=== PATIENT | male | born 1970 | race Caucasian/White ===

== ENCOUNTER 2018-10-24 07:15 | Emergency (ER) | payer OTHER ==
[~2018-10-24] VITALS: Ht 175.3 cm; Wt 117.9 kg
[2018-10-24 07:42] VITALS: BP_SYST 150
--- NOTE | 2018-10-24 07:49 | NUR ---
Patient to ER bed 3 to gown for evaluation. Side rails up. Report given to Ramírez TOMAS.
--- NOTE | 2018-10-24 07:55 | NUR ---
PATIENT SITTING UP ON BED. AAOX4. RESPIRATIONS EVEN AND UNLABORED. DENIES OF ANY CHEST PAIN OR SOB. PT WITH C/O NAUSEA, VOMITING, AND DIARRHEA SINCE SATURDAY. DENIES OF ANY ABDOMINAL PAIN. PT ALSO WITH C/O HEADACHE BEHIND BILATERAL EYES = 06/06. PATIENT WITH C/O NASAL CONGESTION. REST AND RELAXATION ENCOURAGED. AFEBRILE; COOLING MEASURES INITIATED. WILL CONTINUE TO MONITOR.
--- NOTE | 2018-10-24 07:58 | NUR ---
ER Dr. CALDERON at bedside examining patient.
[2018-10-24] MEDS ORDERED: NACL 0.9% 1,000 ML IV ONE (08:15)
[2018-10-24] MEDS ORDERED: MORPHINE 4 MG/ML INJ. SYRINGE IVP ONE ×2 (08:15→10:00)
[2018-10-24 08:24] LABS: BASOPHILS % (AUTO) 0.5 % (0.0-2.0); HEMATOCRIT 48.9 % (36-54); HEMOGLOBIN 16.8 g/dL (14.0-18.0); LYMPHOCYTES # (AUTO) 0.8 K/uL (1.0-5.5); MEAN CORPUSCULAR HEMOGLOBIN 33 pg (27-31); MEAN CORPUSCULAR HGB CONC 34 % (32-36); MEAN CORPUSCULAR VOLUME 95 fL (79.0-98.0); MONOCYTES # (AUTO) 0.5 K/uL (0.0-1.0); MONOCYTES % (AUTO) 9.4 % (1.7-9.3); NEUTROPHILS # (AUTO) 3.7 K/uL (1.8-7.7); NEUTROPHILS % (AUTO) 74.1 % (40.0-70.0); PLATELET COUNT (AUTO) 165 K/uL (130-430); RED BLOOD CELL COUNT(AUTO) 5.13 MIL/uL (4.2-6.2); RED CELL DISTRIBUTION WIDTH 12.4 % (9.0-15.0)
--- NOTE | 2018-10-24 08:30 | NUR ---
MORPHINE GIVEN FOR HEADACHE AND IV FLUIDS STARTED. TOLERATING WELL. WILL CONTINUE TO MONITOR.
[2018-10-24 08:36] LABS: CALCIUM 8.6 mg/dL (8.4-11.0); POTASSIUM 3.6 mmol/L (3.5-5.1)
[2018-10-24 08:42] LABS: ALBUMIN 3.7 g/dL (3.4-4.8); TOTAL BILIRUBIN 0.6 mg/dL (0.0-1.0)
--- NOTE | 2018-10-24 08:50 | NUR ---
PATIENT VERBALIZED SLIGHT RELIEF FROM HEADACHE. PAIN = 6/10. PT STILL AFEBRILE. DR. CALDERON MADE AWARE OF PT'S CURRENT CONDITION AND VITAL SIGNS. COOLING MEASURES CONTINUED.
--- NOTE | 2018-10-24 09:15 | NUR ---
TYLENOL [address] CALDERON ORDERS. TOLERATED WELL.
[2018-10-24] MEDS ORDERED: ACETAMINOPHEN 500 MG TABLET ONE (09:23)
[2018-10-24] MEDS ORDERED: ACETAMINOPHEN 500 MG TABLET PO ONE (09:45)
--- NOTE | 2018-10-24 10:05 | NUR ---
2ND DOSE OF MORPHINE GIVEN FOR HEADACHE = 05/06. TOLERATED WELL. REST AND RELAXATION ENCOURAGED. COOLING MEASURES CONTINUED.
--- NOTE | 2018-10-24 10:35 | NUR ---
Patient resting quietly. No acute distress noted. PATIENT VERBALIZED GOOD RELIEF FROM HEADACHE = 5/10. TOLERABLE VERBALIZED. NO OBJECTIVE S/SX OF PAIN OBSERVED. AWAITING LAB RESULTS. WILL CONTINUE TO MONITOR.
[2018-10-24 10:42] LABS: BILIRUBIN,URINE NEGATIVE (NEGATIVE); CLARITY/URINE CLEAR (CLEAR); COLOR,URINE YELLOW (YELLOW); GLUCOSE,URINE NEGATIVE (NEGATIVE); KETONES,URINE NEGATIVE (NEGATIVE); LEUKOCYTE ESTERASE ,URINE NEGATIVE (NEGATIVE); NITRITE, URINE NEGATIVE (NEGATIVE); PROTEIN URINE 1+ (NEGATIVE); UROBILINOGEN,URINE 0.2 (0.2-1.0)
[2018-10-24 10:43] LABS: BLOOD, URINE TRACE (NEGATIVE)
[2018-10-24 10:50] LABS: BACTERIA,URINE FEW /HPF (None Seen); MUCUS,URINE None Seen /LPF (None Seen); RBC,URINE 0-3 /HPF (0-3); WBC,URINE 0-3 /HPF (0-3)
[2018-10-24 11:35] VITALS: BP_SYST 127
--- NOTE | 2018-10-24 11:35 | NUR ---
Patient given written and verbal discharge instructions and verbalizes understanding. ER MD discussed with patient the results and treatment provided. Patient in stable condition. ID arm band removed. IV catheter removed intact and dressing applied, no active bleeding. Rx of ZOFRAN, TRAMADOL, LOMOTIL given. Patient educated on pain management and to follow up with PMD. Pain Scale 5/10; TOLERABLE VERBALIZED. NO OBJECTIVE S/SX OF PAIN OBSERVED. PT STATES, "I FEEL BETTER." Opportunity for questions provided and answered. Medication side effect fact sheet provided. PATIENT IN NO ACUTE DISTRESS. IN GOOD CONDITION. NOTED WITH A STABLE GAIT.
== END 2018-10-24 11:35 | disposition home or self-care (01) ==
LOC: SED 07:15
DX: K52.9 Noninfective gastroenteritis and colitis, unspecified (principal); B34.9 Viral infection, unspecified; R51 Headache; E11.9 Type 2 diabetes mellitus without complications; R03.0 Elevated blood-pressure reading, without diagnosis of hypertension
CPT/HCPCS: 36415; 70450; 71045; 80053; 81000; 83605; 83690; 85025; 93005; 96361; 96374; 96376; 99284; J2270; J7030